=== PATIENT | male | born 1980 ===

== ENCOUNTER 2025-03-13 06:37 | Day surgery (SDC) | payer OTHER, SELFPAY | END 2025-03-13 12:44 | disposition home or self-care (01) | LOC: GI 06:37 | PROVIDERS: ATTENDING PHYSICIAN Surgery | DX: Z12.11 Encounter for screening for malignant neoplasm of colon (principal); K57.30 Diverticulosis of large intestine without perforation or abscess without bleeding; K63.89 Other specified diseases of intestine; K52.89 Other specified noninfective gastroenteritis and colitis | CPT/HCPCS: 45380; 88305 ==